=== PATIENT | male | born 1980 | race Caucasian/White ===

== ENCOUNTER 2022-10-28 10:11 | Emergency (ER) | payer OTHER, SELFPAY ==
--- NOTE | ~2022-10-28 | XR_ITS ---
EXAMINATION: XR knee LT 3V DATE: 10/28/2022 11:02 INDICATION: Chain saw injury with laceration to the anterolateral left knee TECHNIQUE: Anteroposterior, sunrise and crosstable lateral views of the left knee were obtained COMPARISON: None. FINDINGS: Alignment is normal. Deep soft tissue laceration along the lateral anterior margin of the patella. No underlying cortical defect. No fracture. Joint spaces appear normal on nonweightbearing imaging. No joint effusion/layering lipohemarthrosis. Soft tissues are unremarkable. IMPRESSION: 1. No left knee joint effusion or acute osseous abnormality. Reviewed, dictated and finalized at location A.
[2022-10-28 10:14] VITALS: BP 147/107; PULSE 92; RESP 18; TEMP 36.4; O2SAT 97
--- NOTE | 2022-10-28 10:48 | ED.GENADULT ---
HPI - General Adult General Chief complaint: Extremity Injury, Lower <Jose Francisco Espinosa PA-C - Last Filed: 10/28/22 18:05> Stated complaint: left leg injury <NIELS Uribe Last Filed: 10/28/22 18:05> Time Seen by Provider: 10/28/22 10:39 <NIELS Uribe Last Filed: 10/28/22 18:05> Source: patient <NIELS Uribe Last Filed: 10/28/22 18:05> Mode of arrival: ambulatory <NIELS Uribe Last Filed: 10/28/22 18:05> Limitations: no limitations <NIELS Uribe Last Filed: 10/28/22 18:05> History of Present Illness HPI narrative: This is a 42-year-old male presents the ED with chief complaint of left knee injury that occurred just prior to arrival. He was at work and using a chainsaw to clear brush when the chainsaw bounced up and hit him in the knee. Reports a laceration and pain to the left knee. States he has been able to walk on this. Reports full range of motion. Bleeding controlled with gauze. Denies any further site of pain or injury. <Jose Francisco Espinosa PA-C - Last Filed: 10/28/22 18:05> Related Data Allergies/adverse reactions: Allergies Allergy/AdvReac Type Severity Reaction Status Date / Time iodine Allergy Mild Unknown Verified 10/28/22 10:23 penicillin G Allergy Mild Rash Verified 10/28/22 10:23 Penicillins Allergy Unknown Rash Verified 10/28/22 10:23 SEAFOOD Allergy Unknown Unknown Uncoded 10/28/22 10:23 <NIELS Uribe Last Filed: 10/28/22 18:05> Review of Systems Review of Systems: CONSTITUTIONAL: Denies fever, chills, or sweats. EYES: Denies visual changes, redness, or discharge. SKIN: Endorses skin laceration. denies rash or itching. MUSCULOSKELETAL: Endorses left knee pain. Denies back pain, joint pain, or myalgia. NEUROLOGIC: Denies headache, numbness, dizziness, or weakness. PSYCHIATRIC: Denies anxiety or depression. <Jose Francisco Espinosa PA-C - Last Filed: 10/28/22 18:05> [facility]LY [facility] Social History Social History: Social History (System 06/11/20 @ 16:52 by Joyce Boyce) Smoking status: Never smoker Alcohol intake: current <Jose Francisco Espinosa PA-C - Last Filed: 10/28/22 18:05> Exam Narrative: GENERAL: Well-appearing, well-nourished, and in no acute distress. HEAD: Normocephalic, atraumatic. EYES: PERRLA and EOMI. ENT: Nares clear, no rhinorrhea or epistaxis. Mucous membranes moist. Oropharynx without tonsillar hypertrophy exudate or other lesions. NECK: Supple. No adenopathy or masses. CHEST: No respiratory distress. Clear to auscultation. No wheezes rales or rhonchi HEART: Regular rate and rhythm. No murmur heard. Normal peripheral pulses. ABDOMEN: Soft, nontender, nondistended, normal active bowel sounds. EXTREMITIES: Left knee: Linear 5 cm laceration to the superior midline left knee. Mild tenderness in the area. Normal range of motion. Full strength. No edema. R knee: benign MSK exam is otherwise benign. He is ambulatory. SKIN: Laceration present. No foreign bodies. Warm, dry, no rash. NEURO: Alert and oriented x3. No focal deficits. PSYCH: Normal mood and affect. <Jose Francisco Espinosa PA-C - Last Filed: 10/28/22 18:05> Course LITERACY TUTOR/PA Physician Supervision For this patient encounter, I reviewed the LITERACY TUTOR or PA documentation, treatment plan, and medical decision making; and I had [id number] time with this patient. 42-year-old male presented to the ED for evaluation of a laceration to the anterior left knee from a chainsaw. Patient's tetanus is up-to-date. Wound is clean and well-appearing. X-ray shows no significant abnormality. On visualization of the knee the laceration does not appear to involve the deep structures. Patient's laceration was repaired as described. Patient was encouraged of close follow-up with his primary care physician. Patient was started on antibiotics in the emergency department and discharged home on Doxy. <Layton Steven MD - Last Filed: 10/28/22 18:35> Vital Sig
[2022-10-28] MEDS: TETANUS,DIPHTHERIA,AC PERTUSSIS ADULT (0.5 ML) BOOSTRIX IM (11:09)
[2022-10-28] MEDS: HYDROcodone/acetaminophen (*CRX) 7.5-325 MG TABLET 1 TAB PO (11:09)
== END 2022-10-28 13:40 | disposition home or self-care (01) ==
PROVIDERS: Emergency Provider Physician Assistant; PCP Family Medicine
DX: S81.012A Laceration without foreign body, left knee, initial encounter (principal); Z23 Encounter for immunization; W29.3XXA Contact with powered garden and outdoor hand tools and machinery, initial encounter
CPT/HCPCS: 12002; 73562; 90471; 90715; 99283; A9270